=== PATIENT | female | born 1940 | race Caucasian/White ===

== ENCOUNTER 2019-03-17 20:38 | Inpatient (IN) | payer OTHER ==
[2019-03-17] MEDS ORDERED: ASPIRIN 81 MG CHEWABLE TAB PO ONE (20:47)
--- NOTE | 2019-03-17 20:48 | EDPHY ---
H & P Time Seen by Provider: 03/17/19 20:45 HPI/ROS: CHIEF COMPLAINT: Chest pain HISTORY OF PRESENT ILLNESS: Patient is a 78-year-old female presents to the emergency department with acute onset of chest pain. Her symptoms started at around 7:00 p.m.. The patient states that her chest pain is similar to when she had the heart attack 2 weeks ago. The patient was seen at [facility] 2 weeks ago for a heart attack per the patient's daughter. Per EMS the patient was given Zofran 4 mg IV and nitroglycerin 0.4. Patient refused aspirin because "her mouth was to drive." EMS states the patient has a significant history of dementia. The patient's daughters is was present on scene. Few minutes after the patient's arrival the patient's daughter arrived. She gave further history. She did confirm that the patient was seen at [facility] and diagnosed with a heart attack. At that time the patient was initially DNR. They did not want to take the patient to the cathode maker in place stents because the patient may go into cardiac arrest. A conservative approach was taken. The patient had bedside echo and medical intervention but no cardiac catheterization. REVIEW OF SYSTEMS: 10 systems were reveiwed and are negative with the exception of the elements mentioned in the history of present illness. Past Medical/Surgical History: Includes coronary artery disease Physical Exam: Vitals noted GENERAL: Moderate acute distress, alert. HEENT: Patient is holding a vomit bag. She has significant saliva at her mouth spitting into the bag. No airway occlusion. Eyes normal to inspection. NECK: Normal, supple. RESPIRATORY: Clear to auscultation bilaterally, no rales, rhonchi or wheezing. CVS: Regular rate and rhythm, no rubs, murmurs, or gallops. ABDOMEN: Soft, nontender, nondistended, no organomegaly. BACK: Normal to inspection, no CVA tenderness. SKIN: Pale, cool, no rash, dry. EXTREMITIES: No pedal edema, no calf tenderness, no Homans sign or cords, no joint swelling. NEURO/PSYCH: Alert and oriented, normal mood and affect, normal motor sensory exam. No obvious cranial nerve deficit. Constitutional: Initial Vital Signs Heart Rate 98 03/17/19 20:41 Respiratory Rate 21 H 03/17/19 20:41 Blood Pressure 108/74 03/17/19 20:41 O2 Sat (%) 96 03/17/19 20:41 O2 Delivery Mode Nasal Cannula O2 (L/minute) 4 Allergies/Adverse Reactions: bee pollen Allergy (Intermediate, Verified 03/17/19 21:11) Other-Enter Comments streptomycin Allergy (Verified 03/17/19 21:10) Home Medications: Medication Instructions Recorded Acetaminophen [Tylenol ES 500 mg 1,000 mg PO TID 03/17/19 (*)] Aspirin [Aspirin 325 mg (*)] 325 mg PO DAILY 03/17/19 Atorvastatin Calcium [Lipitor 20 20 mg PO HS 03/17/19 mg (*)] Cholecalciferol Vit D3 [Vitamin D3 2,000 units PO DAILY 03/17/19 (*)] FLUoxetine [Prozac 20 MG (*)] 40 mg PO HS 03/17/19 Furosemide [Lasix 40 MG (*)] 40 mg PO DAILY 03/17/19 Ipratropium/Albuterol [Duoneb (*)] 3 ml IH Q6-8PRN PRN 03/17/19 Metoprolol Succinate Xr [Toprol Xl 50 mg PO DAILY 03/17/19 50 mg (*)] Multivitamins [Multivitamin (*)] 1 each PO DAILY 03/17/19 Potassium Cl [Klor-Con 20 meq (*)] 20 meq PO DAILY 03/17/19 guaiFENesin [Mucinex 600 MG (*)] 600 mg PO BID 03/17/19 Medical Decision Making - Diagnostics Imaging Results: Imaging Impressions Chest X-Ray 03/17/19 20:54 Impression: 1. Mild cardiomegaly with atherosclerosis. 2. The presence of bilateral peripherally-calcified augmentation mammoplasties limits assessment of the lower lung zones. There is no focal alveolar consolidation in the upper lung zones. ED Course/Re-evaluation: In the emergency department I met EMS and took report from the weed inspector. Patient's daughter arrived shortly after the patient. I took further history from the patient's daughter. Had discussion regarding DNR status. At this time patient is DNR. The daughter is deciding if she thinks the patient would want to go to the cardiac catheterization lab. She initially informed that she would like conservative treatment at the bedside. Patient was given aspirin orally. I discussed this with Dr. Sung. A copy of the EKG was sent to Dr. Sung. Dr. Sung come to the emergency department to evaluate the patient and discussed the plan with the family 2102: Dr. uSng is in the emergency department to evaluate the patient. After multiple discussions with Cardiology in the patient's family, the patient' s wishes are to be placed in comfort care. She does not want to go to cardiac catheterization. Dr. Sung feels the patient is to be admitted to [facility] rather than [facility] your ICU. I discussed the case with Dr. Moeller from the hospitalist service. He will admit. Differential Diagnosis: My differential includes but is not limited to ACS, acute MS, dissection, aneurysm, pulmonary embolus Critical Care Time: The patient required 35 min of critical care time. This was exclusive of any unbundled procedure. This was due the patient's presentation. The patient appeared quite ill and required my presence at the bedside. I had a long discussion with the patient's daughter regarding her DNR status. Consultation was had with Cardiology regarding the patient's acute MS findings on EKG. - Data Points Laboratory Results: Laboratory Results 03/17/19 20:47 03/17/19 20:47 03/17/19 03/17/19 03/17/19 20:47 20:47 20:47 WBC 14.32 10^3/uL H 10^3/uL (3.80-9.50) RBC 5.20 10^6/uL 10^6/uL (4.18-5.33) Hgb 15.6 g/dL g/dL (12.6-16.3) Hct 49.0 % H % (38.0-47.0) MCV 94.2 fL fL (81.5-99.8) MCH 30.0 pg pg (27.9-34.1) MCHC 31.8 g/dL L g/dL (32.4-36.7) RDW 16.4 % H % (11.5-15.2) Plt Count 372 10^3/uL 10^3/uL (150-400) MPV 10.4 fL fL (8.7-11.7) Neut % (Auto) 71.4 % % (39.3-74.2) Lymph % (Auto) 19.2 % % (15.0-45.0) [place] % (Auto) 5.8 % % (4.5-13.0) Eos % (Auto) 2.2 % % (0.6-7.6) Baso % (Auto) 0.4 % % (0.3-1.7) Nucleat RBC Rel Count 0.0 % % (0.0-0.2) Absolute Neuts (auto) 10.21 10^3/uL H 10^3/uL (1.70-6.50) Absolute Lymphs (auto) 2.75 10^3/uL 10^3/uL (1.00-3.00) Absolute Monos (auto) 0.83 10^3/uL H 10^3/uL (0.30-0.80) Absolute Eos (auto) 0.32 10^3/uL 10^3/uL (0.03-0.40) Absolute Basos (auto) 0.06 10^3/uL 10^3/uL (0.02-0.10) Absolute Nucleated RBC 0.00 10^3/uL 10^3/uL (0-0.01) Immature Gran % 1.0 % % (0.0-1.1) Immature Gran # 0.15 10^3/uL H 10^3/uL (0.00-0.10) PT 12.1 SEC SEC (12.0-15.0) INR 0.93 (0.83-1.16) APTT 31.9 SEC SEC (23.0-38.0) Sodium 137 mEq/L mEq/L (135-145) Potassium 5.1 mEq/L mEq/L (3.5-5.2) Chloride 99 mEq/L mEq/L (97-110) Carbon Dioxide 20 mEq/l L mEq/l (22-31) Anion Gap 18 mEq/L H mEq/L (6-14) BUN 19 mg/dL mg/dL (7-23) Creatinine 0.8 mg/dL mg/dL (0.6-1.0) Estimated GFR > 60 Glucose 208 mg/dL H mg/dL (70-100) Calcium 10.2 mg/dL mg/dL (8.5-10.4) POC Troponin I 03/17/19 20:44 WBC RBC Hgb Hct MCV MCH MCHC RDW Plt Count MPV Neut % (Auto) Lymph % (Auto) [place] % (Auto) Eos % (Auto) Baso % (Auto) Nucleat RBC Rel Count Absolute Neuts (auto) Absolute Lymphs (auto) Absolute Monos (auto) Absolute Eos (auto) Absolute Basos (auto) Absolute Nucleated RBC Immature Gran % Immature Gran # PT INR APTT Sodium Potassium Chloride Carbon Dioxide Anion Gap BUN Creatinine Estimated GFR Glucose Calcium POC Troponin I 0.07 ng/mL ng/mL (0.00-0.08) Medications Given: Discontinued Medications Aspirin (Aspirin) 324 mg PO EDNOW ONE Stop: 03/17/19 20:48 Last Admin: 03/17/19 20:48 Dose: 324 mg Fentanyl (Sublimaze) 25 mcg IVP EDNOW ONE Stop: 03/17/19 20:59 Last Admin: 03/17/19 21:02 Dose: 25 mcg Fentanyl (Sublimaze) 25 mcg IVP EDNOW ONE Stop: 03/17/19 21:16 Last Admin: 03/17/19 21:18 Dose: 25 mcg Sodium Chloride (Ns) 500 mls @ 1,000 mls/hr IV EDNOW ONE PRN Reason: Protocol Stop: 03/17/19 21:23 Last Admin: 03/17/19 21:02 Dose: 500 mls Point of Care Test Results: Chemistry 03/17/19 20:44 POC Troponin I 0.07 ng/mL ng/mL (0.00-0.08) Departure - Departure Disposition: [facility] Inpatient Acute Clinical Impression: Chest pain Qualifiers: Chest pain type: unspecified Qualified Code(s): R07.9 - Chest pain, unspecified Acute MS Qualifiers: Myocardial infarction type: unspecified Involved coronary artery: unspecified coronary artery Qualified Code(s): I21.9 - Acute myocardial infarction, unspecified Condition: Critical
[2019-03-17] MEDS ORDERED: NS 500 ML IV ONE (20:54)
[2019-03-17] MEDS ORDERED: fentaNYL 100 MCG/2 ML INJ ONE ×2 (20:56→21:04)
[2019-03-17] MEDS ORDERED: fentaNYL 100 MCG/2 ML INJ IVP ONE ×2 (20:58→21:15)
[2019-03-17] MEDS ORDERED: MIDAZOLAM 2 MG/2 ML VIAL ONE (21:04)
[2019-03-17] MEDS ORDERED: IOPAMIDOL (ISOVUE 370) 100 ML BTL IV ONE (21:05)
[2019-03-17] MEDS ORDERED: LIDOCAINE 1% 5 ML SDV ONE (21:05)
[2019-03-17 21:07] LABS: PLATELET COUNT 372 10^3/uL (150-400)
[2019-03-17 21:33] LABS: INR 0.93 (0.83-1.16); PROTIME(PATIENT) 12.1 SEC (12.0-15.0)
[2019-03-17] MEDS ORDERED: ONDANSETRON DISINTEGRATING 4 MG TAB PO PRN (22:06)
[2019-03-17] MEDS ORDERED: ACETAMINOPHEN 325 MG TAB PO PRN (22:06)
--- NOTE | 2019-03-17 22:11 | CPEKG ---
Test Reason : OPEN Blood Pressure : / mmHG Vent. Rate : 098 BPM Atrial Rate : 112 BPM P-R Int : 043 ms QRS Dur : 112 ms QT Int : 395 ms P-R-T Axes : 000 -46 144 degrees QTc Int : 505 ms Atrial fibrillation Ventricular premature complex Incomplete right bundle branch block Probable inferior infarct, recent Minimal ST elevation, anterior leads Lateral leads are also involved Prolonged QT interval Confirmed by Anjana Correa ([id number]) on 03/17/2019 10:10:38 PM Referred By: ANJANA CORREA Confirmed By:Anjana Correa
[2019-03-17] MEDS ORDERED: NITROGLYCERIN 0.4 MG BTL SL PRN (22:42)
[2019-03-17] MEDS ORDERED: NS 1,000 ML IV SCH (23:45)
[2019-03-17] MEDS: fentaNYL 100 MCG/2 ML INJ IVP PRN (23:54)
--- NOTE | 2019-03-18 00:24 | PDGENHP ---
History and Physical - Chief Complaint Chest pain - History of Present Illness Source-patient with history of advanced dementia. Her daughter and son-in-law are at bedside and provide history. EMR was reviewed and case discussed with ED provider. HPI-this is a pleasant 78-year-old female with past medical history significant for dementia CAD with recent NH 2 weeks ago where she was admitted at [facility]. At that time patient and family had elected not to pursue any cardiac intervention. Patient remained in the hospital for 4-5 days and was discharged back home where she has caregivers for most of the week. This evening patient began to complain of significant chest pain that started before 7:00 p.m. Patient arrived via EMS. She was noted to have ST elevations. She declined aspirin but was given nitroglycerin and fentanyl EN route to the ED. She arrived to the emergency department and was noted to be having an ST- elevation NH. Dr. Sung with Cardiology discussed plan with patient and her family. Comfort care is elected as patient and her family did not want for any aggressive measures or interventions. Patient is DNR DNI. Evaluated the patient on PCU where she is complaining of significant left-sided chest pain and shortness of breath. History Information - Allergies/Home Medication List Allergies/Adverse Reactions: bee pollen Allergy (Intermediate, Verified 03/17/19 21:11) Other-Enter Comments streptomycin Allergy (Verified 03/17/19 21:10) Home Medications: Acetaminophen [Tylenol ES 500 mg (*)] 1,000 mg PO TID 03/17/19 [Last Taken 03/17] Aspirin [Aspirin 325 mg (*)] 325 mg PO DAILY 03/17/19 [Last Taken 03/17/19] Atorvastatin Calcium [Lipitor 20 mg (*)] 20 mg PO HS 03/17/19 [Last Taken ] Cholecalciferol Vit D3 [Vitamin D3 (*)] 2,000 units PO DAILY 03/17/19 [Last Taken 03/17/19] FLUoxetine [Prozac 20 MG (*)] 40 mg PO HS 03/17/19 [Last Taken 03/16/19] Furosemide [Lasix 40 MG (*)] 40 mg PO DAILY 03/17/19 [Last Taken 03/17/19] Ipratropium/Albuterol [Duoneb (*)] 3 ml IH Q6-8PRN PRN 03/17/19 [Last Taken Unknown] Metoprolol Succinate Xr [Toprol Xl 50 mg (*)] 50 mg PO DAILY 03/17/19 [Last Taken 03/17/19] Multivitamins [Multivitamin (*)] 1 each PO DAILY 03/17/19 [Last Taken 03/17/19] Potassium Cl [Klor-Con 20 meq (*)] 20 meq PO DAILY 03/17/19 [Last Taken 03/17/19 ] guaiFENesin [Mucinex 600 MG (*)] 600 mg PO BID 03/17/19 [Last Taken 03/17/19] I have personally reviewed and updated: medical history, social history, surgical history - Past Medical History Additional medical history: Dementia. CAD. COPD. 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 Patient without any prison care at home. Her daughter lives in town and provides support. Cor status-DNR DNI. Review of Systems Review of Systems: ROS: 10pt was reviewed & negative except for what was stated in HPI & below Cardiac: Reports: chest pain Physical Exam Physical Exam: Temp Pulse Resp BP Pulse Ox 36.8 C 101 H 16 109/89 H 94 03/17/19 20:52 03/17/19 21:49 03/17/19 21:49 03/17/19 23:20 03/17/19 21:49 Selected Entries 03/17/19 03/17/19 03/17/19 20:41 23:10 23:20 Blood Pressure Automatic Method Heart Rate 98 104 H Respiratory 21 H 17 Rate O2 Sat (%) 96 90 L Blood Pressure 108/74 107/64 109/89 H Mean Arterial 85 78 95 Pressure (MAP) O2 (L/minute) 4 2 Activity During At Rest Vital Signs O2 Delivery Nasal Cannula Nasal Cannula Mode Blood Pressure Left Left Source Upper Upper Arm Arm Constitutional: uncomfortable, other (Patient on moderate distress. She is complaining of left chest pain. She appears acutely ill and pale. ) Eyes: PERRL, anicteric sclera, No scleral injection Ears, Nose, Mouth, Throat: moist mucous membranes (Lips slightly cracked dry) Cardiovascular: regular rate and rhythym, no murmur, rub, or gallop (Slightly distant heart sounds.), pulses symmetric bilaterally, edema (Trace lower extremity) Lab Data & Imaging Review 03/17/19 20:47 03/17/19 20:47 WBC 14.32 10^3/uL (3.80-9.50) H 03/17/19 20:47 RBC 5.20 10^6/uL (4.18-5.33) 03/17/19 20:47 Hgb 15.6 g/dL (12.6-16.3) 03/17/19 20:47 Hct 49.0 % (38.0-47.0) H 03/17/19 20:47 MCV 94.2 fL (81.5-99.8) 03/17/19 20:47 MCH 30.0 pg (27.9-34.1) 03/17/19 20:47 MCHC 31.8 g/dL (32.4-36.7) L 03/17/19 20:47 RDW 16.4 % (11.5-15.2) H 03/17/19 20:47 Plt Count 372 10^3/uL (150-400) 03/17/19 20:47 MPV 10.4 fL (8.7-11.7) 03/17/19 20:47 Neut % (Auto) 71.4 % (39.3-74.2) 03/17/19 20:47 Lymph % (Auto) 19.2 % (15.0-45.0) 03/17/19 20:47 [place] % (Auto) 5.8 % (4.5-13.0) 03/17/19 20:47 Eos % (Auto) 2.2 % (0.6-7.6) 03/17/19 20:47 Baso % (Auto) 0.4 % (0.3-1.7) 03/17/19 20:47 Nucleat RBC Rel Count 0.0 % (0.0-0.2) 03/17/19 20:47 Absolute Neuts (auto) 10.21 10^3/uL (1.70-6.50) H 03/17/19 20:47 Absolute Lymphs (auto) 2.75 10^3/uL (1.00-3.00) 03/17/19 20:47 Absolute Monos (auto) 0.83 10^3/uL (0.30-0.80) H 03/17/19 20:47 Absolute Eos (auto) 0.32 10^3/uL (0.03-0.40) 03/17/19 20:47 Absolute Basos (auto) 0.06 10^3/uL (0.02-0.10) 03/17/19 20:47 Absolute Nucleated RBC 0.00 10^3/uL (0-0.01) 03/17/19 20:47 Immature Gran % 1.0 % (0.0-1.1) 03/17/19 20:47 Immature Gran # 0.15 10^3/uL (0.00-0.10) H 03/17/19 20:47 PT 12.1 SEC (12.0-15.0) 03/17/19 20:47 INR 0.93 (0.83-1.16) 03/17/19 20:47 APTT 31.9 SEC (23.0-38.0) 03/17/19 20:47 Sodium 137 mEq/L (135-145) 03/17/19 20:47 Potassium 5.1 mEq/L (3.5-5.2) 03/17/19 20:47 Chloride 99 mEq/L (97-110) 03/17/19 20:47 Carbon Dioxide 20 mEq/l (22-31) L 03/17/19 20:47 Anion Gap 18 mEq/L (6-14) H 03/17/19 20:47 BUN 19 mg/dL (7-23) 03/17/19 20:47 Creatinine 0.8 mg/dL (0.6-1.0) 03/17/19 20:47 Estimated GFR > 60 03/17/19 20:47 Glucose 208 mg/dL (70-100) H 03/17/19 20:47 Calcium 10.2 mg/dL (8.5-10.4) 03/17/19 20:47 POC Troponin I 0.07 ng/mL (0.00-0.08) 03/17/19 20:44 Imaging Review: Portable AP Upright Chest, at 8:59 PM Clinical History: 78-year-old female in the ED with chest pain. Comparison Study: None available. Findings: Telemetry monitoring lead lines and oxygen tubing are present. Bilateral augmentation mammoplasties are seen with fibrous capsular calcification, partially obscuring the lower lung zones. There is a rotatory thoracic scoliosis. The cardiac silhouette is mildly enlarged. There is dense atherosclerotic calcification of the aortic knob. There is no infiltrate identified in the mid -to-upper lung zones. The pulmonary vasculature is upper-normal; there is no peripheral interstitial edema. There is no pneumothorax. There is no convincing evidence of a pleural effusion. Impression: 1. Mild cardiomegaly with atherosclerosis. 2. The presence of bilateral peripherally-calcified augmentation mammoplasties limits assessment of the lower lung zones. There is no focal alveolar consolidation in the upper lung zones. Dictated By: Italo Cheng MD Visualized and Interpreted EKG results: Yes EKG additional interpertation: afib, v rate 90s. PVC. ST elevation inferior anterior leads. QTc 505. Assessment & Plan Assessment: this is a pleasant 78-year-old female with past medical history significant for dementia CAD with recent NH 2 weeks ago where she was admitted at [facility]. #Acute NH (Acute) - patient on comfort care measures. patient continues to have increased chest pain. Clarified with the patient's daughter that she is likely to continue to have chest pain until infarct is completed. Nitroglycerin , morphine which was transitioned back to fentanyl for improved affect numbness and Ativan will be available p.r.n. For comfort measures. Patient did have a slight drop in her blood pressure following a nitroglycerin to the SBP in the 70s. This improved rapidly. Daughter notes that 1st priority is to ensure the patient is comfortable however she is hopeful that her siblings will be able to arrive approximately noon tomorrow from out of town. #Chest pain (Acute) - p.r.n. Medications as noted above. #Comfort measures - supportive care. No interventions. Chronic medical issues - holding home medication #COPD - oxygen and nebulizer p.r.n. For comfort #Dementia - patient's daughter reports she will stay at bedside this evening. #CAD - holding patient's patient's including statin, beta-alicia, Lasix FEN - patient did receive a single bolus of IV fluids was not discontinued following dosing of morphine and nitroglycerin following which patient's blood pressure did drop down into the 70s. Daughter was amenable to this. Diet as tolerated. Patient is orally hydrating well. PPX-no SCDs or anticoagulation for comfort measures. Cor-DNR DNI. Disposition patient admitted observation status on the [facility] floor in PCU overflow for continued pain control.
[2019-03-18] MEDS: fentaNYL 100 MCG/2 ML INJ IVP PRN (01:20)
[2019-03-18] MEDS: LORazepam 2 MG/ML INJ IVP PRN ×5 (03:03→23:58)
[2019-03-18] MEDS: ONDANSETRON 4 MG/2 ML VIAL IVP PRN ×3 (05:14→23:07)
--- NOTE | 2019-03-18 12:17 | HOSPPROG ---
Hospitalist Progress Note Assessment/Plan: Pleasant 78-year-old female with past medical history significant for dementia CAD with recent MS 2 weeks ago where she was admitted at [facility]. At that time a decision for no medical or surgical interventions was made. The pt had chest pain recurrence on 03/17 and the pt was admitted via the ER for symptom mgmt. In the ER, Dr. Sung with Cardiology evaluated the patient and the family once again decided upon no interventions. Overnight she has been on comfort care orders. Pain and anxiety is well managed at this time The pt's daughter confirms comfort care again today. Additional family members are on their way. #Acute MS (Acute) - patient on comfort care measures. -no cp this morning -pain is well controlled #Chest pain (Acute) - p.r.n. Medications as noted above. #Comfort measures - supportive care. No interventions. Chronic medical issues - holding home medication #COPD - oxygen and nebulizer p.r.n. For comfort #Dementia #CAD - holding patient's patient's meds including statin, beta-alicia, Lasix FEN - Diet as tolerated. PPX-no SCDs or anticoagulation for comfort measures. Cor-DNR DNI. Plan: -Comfort Care -Symptom Mgmt -Palliative Care -Hospice consult -Dispo: pending hospice arrangement and symptom mgmt Subjective: no cp or sob. no n/v Objective: Vital Signs Temp Pulse Resp BP Pulse Ox 36.4 C 119 H 16 105/81 H 97 03/18/19 09:25 03/18/19 09:25 03/18/19 09:25 03/18/19 09:25 03/18/19 09:25 03/17/19 03/18/19 03/19/19 05:59 05:59 05:59 Intake Total 500 Balance 500 PT 12.1 SEC (12.0-15.0) 03/17/19 20:47 INR 0.93 (0.83-1.16) 03/17/19 20:47 - Physical Exam Constitutional: no apparent distress Eyes: PERRL, EOMI Ears, Nose, Mouth, Throat: moist mucous membranes Cardiovascular: regular rate and rhythym Respiratory: no respiratory distress, no rales or rhonchi Gastrointestinal: normoactive bowel sounds Skin: warm Neurologic: No AAOx3 Psychiatric: interacting appropriately, not anxious ICD10 Worksheet Patient Problems: Problems Problem Status Onset Acute MS Acute Chest pain Acute
--- NOTE | 2019-03-18 16:13 | ASMTCASEMG ---
Living Arrangements What is your living Answers: With Child(chuckie) arrangement? Who do you live with? Type Of Residence What kind of residence do Answers: House you live in? Case Management Evaluation Functional: ADL / IADL Answers: Cognitive Deficiency Performance Deficits Due to: Education Needs Answers: Hospice Notes: family will have consul t Discharge Plan Comments Coordination Status Comments Notes: Pt was admitted through ED yesterday with chest pain. She had an AK two weeks ago and was seen at [facility]. She has signifiant dementia. CM discussed pt in interdisciplinary rounds. Daughter Lavern's wish is to have her mother go on hospice, as she says this is what her mother wants and that she has expressed that she is "ready to go". Because of this, she did not have cardiac cath following AK. Our Palliative Care team met with Lavern this morning and will meet with extended family this afternoon. CM put in a referral to [facility] per Palliative Care's request. Pt lives at home with Lavern. CM will continue to follow. JEMAL DC plan: Home with hospice Date Signed: 03/18/2019 04:12 PM Electronically Signed By:Melani Champion
[2019-03-19] MEDS: LORazepam 2 MG/ML INJ IVP PRN ×2 (09:56→19:19)
[2019-03-19] MEDS: ONDANSETRON 4 MG/2 ML VIAL IVP PRN ×2 (09:56→18:09)
--- NOTE | 2019-03-19 13:21 | HOSPPROG ---
Hospitalist Progress Note Assessment/Plan: Pleasant 78-year-old female with past medical history significant for dementia CAD with recent CO 2 weeks ago where she was admitted at [facility]. At that time a decision for no medical or surgical interventions was made. The pt had chest pain recurrence on 03/17 and the pt was admitted via the ER for symptom mgmt. In the ER, Dr. Sung with Cardiology evaluated the patient and the family once again decided upon no interventions. She is on comfort care orders. Pain and anxiety is well managed at this time #Acute CO (Acute) - patient on comfort care measures. #Chest pain (Acute) - p.r.n. Medications as noted above. #Comfort measures - supportive care. No interventions. #COPD - oxygen and nebulizer p.r.n. For comfort #Dementia #CAD - holding patient's patient's meds including statin, beta-alicia, Lasix #Urinary retention FEN - Diet as tolerated. PPX-no SCDs or anticoagulation for comfort measures. Cor-DNR DNI. Plan: -Comfort Care -Symptom Mgmt -Palliative Care -Hospice consult -[facility] -Dispo: pending hospice arrangement and symptom mgmt. Possible d/c today. Subjective: comfortable. Had chest pain earlier, better with Morphine. Objective: Vital Signs Temp Pulse Resp BP Pulse Ox 36.4 C 145 H 16 101/83 H 95 03/19/19 10:08 03/19/19 10:08 03/19/19 10:08 03/19/19 10:08 03/19/19 10:08 03/18/19 03/19/19 03/20/19 05:59 05:59 05:59 Intake Total 500 100 Output Total 0 Balance 500 100 PT 12.1 SEC (12.0-15.0) 03/17/19 20:47 INR 0.93 (0.83-1.16) 03/17/19 20:47 - Physical Exam Constitutional: no apparent distress Eyes: PERRL, EOMI Ears, Nose, Mouth, Throat: moist mucous membranes, hearing normal Cardiovascular: regular rate and rhythym, No edema Respiratory: no respiratory distress, no rales or rhonchi, clear to auscultation Gastrointestinal: normoactive bowel sounds Skin: warm Neurologic: No AAOx3 Psychiatric: interacting appropriately, not anxious Lymph, Heme, Immunologic: No petechiae ICD10 Worksheet Patient Problems: Problems Problem Status Onset Acute CO Acute Chest pain Acute
--- NOTE | 2019-03-19 17:09 | ASMTCMCOM ---
CM Note CM Note Notes: Plan is for discharge tomorrow morning to [facility] on [facility] hospice level care. Guerda has been coordinating this discharge and will have an RN come and hook pt up to [employer] pump and coordinate dc tomorrow morning. [employer] pump is being delivered tonight and CM notified Charge Nurse that pump will be delivered and will need to be locked up until Guerda can hook it up tomorrow am. CM was back and forth with [facility] and [facility] all day trying to get pt admitted to [facility] as pt's family feel her needs exceed what they can care for at home. CM contacted pt's ACPR worker Ashley [phone] who said she was not able to come out and complete ULTC 100 until Friday despite CM explaining the circumstances. JEMAL started ppwk to fax over but since pt qualified on [facility] and is discharging tomorrow CM did not complete. Date Signed: 03/19/2019 05:09 PM Electronically Signed By:MARGOT Hawkins
--- NOTE | 2019-03-19 17:15 | PDMN ---
Medical Necessity Medical necessity: Change to inpt as of 03/19/19, meets inpt criteria per MD order and MCG M-230, Myocardial Infarction, 2 days, inpt adm indicated for acute STEMI, symptomatic w/increased chest pain and ST elevations noted on EKG. PMHx includes recent KS 2 weeks ago, COPD, CAD, and dementia. Pt on comfort care measures per family, pain/symptom management: IV morphine, IV Ativan for anxiety, IV antiemetics, [place], 3 L O2, Hospice arrangements being made, est LOS >2MN.
[2019-03-20] MEDS: LORazepam 2 MG/ML INJ IVP PRN ×3 (02:01→14:30)
[2019-03-20] MEDS: fentaNYL 100 MCG/2 ML INJ IVP PRN ×4 (07:53→13:26)
[2019-03-20 11:00] VITALS: BP 91/67
--- NOTE | 2019-03-20 12:02 | PDIAF ---
- Diagnosis Diagnosis: Hospice with [facility]ft Code Status: Do Not Resuscitate - Medication Management Discharge Medications: electronically signed and located in the Home Medication List. - Orders Diet Recommendation: no restrictions on diet Diet Texture: Regular Texture Diet Additional Instructions: Activity: as tolerated Meds: -Per your Hospice team. Morphine HYDRODYNAMICIST is being set up - Follow Up Care Current Providers and Referrals: Patient,NotPresent [Unknown] - As per Instructions
--- NOTE | 2019-03-20 12:22 | PDDCSUM ---
Discharge Summary Discharge Summary: Pleasant 78-year-old female with past medical history significant for dementia CAD with recent OR 2 weeks ago where she was admitted at [facility]. At that time a decision for no medical or surgical interventions was made. The pt had chest pain recurrence on 03/17 and the pt was admitted via the ER for symptom mgmt. In the ER, Dr. Sung with Cardiology evaluated the patient and the family once again decided upon no interventions. She was admitted and comfort care orders were placed. Family met with our Palliative care team and hospice was chosen. Symptom control was optimized. She is ready for d/c to [facility] Pain mgmt will be set up by hospice via a Morphine LEAD IOS DEVELOPER which they will manage. DDX: #Acute OR (Acute) - patient on comfort care measures. #Chest pain (Acute) - #COPD #Dementia #CAD - holding patient's patient's meds including statin, beta-alicia, Lasix #Urinary retention: tong placed Exam: NAD RRR CTA B S/NT/ND TONG IN MEDS: SEE MED REC TOTAL TIME SPENT ON D/C IS 35 MINS. D/W FAMILY, NURSING, AND CM
--- NOTE | 2019-03-20 12:23 | ASMTDCNOTE ---
Case Management Discharge Discharge Order Complete? Answers: Yes Patient to Obtain Answers: Other Notes: [facility] Medications Transportation Arranged Answers: Other Notes: [facility] Discharge Comments Notes: [facility] is transporting pt at 1245 today to [facility]. The [facility] nurse will be present to manage the pump during discharge. RN received report number. Date Signed: 03/20/2019 12:22 PM Electronically Signed By:Kayley Doll
--- NOTE | 2019-03-20 12:39 | ASMTLACE ---
SHABNAM Length of stay for Answers: 1 day current admission Comorbidities - select Answers: Chronic pulmonary disease all that apply Coronary Artery Disease Dementia Opioid dependence / Chronic pain Previous myocardial infarction # of Emergency department Answers: 1-2 visits in the last 6 months Score: 14 Date Signed: 03/20/2019 12:38 PM Electronically Signed By:Kayley Doll
--- NOTE | 2019-03-20 12:44 | ASDISCHSUM ---
Discharge Information Plan Status:Hospice-SNF Medically Cleared to Leave: Discharge Date: D/C Disposition:[facility] Facility [facility] D/C Disposition:Prison Facility Projected Discharge Date:03/20/2019 11:00 AM Transportation at D/C: Discharge Delay Reason: Follow-Up Date:03/20/2019 11:00 AM Discharge Slot: Final Diagnosis: Placement Information Referral Type:*Hospice Referral ID:[id number] Provider Name:[facility] Address 1:[address] Phone Number: Address 2: Fax Number: [facility]:[place] Selection Factors: State:[place] Referral Type:*Fdc/SNF Referral ID:[id number] Provider Name:[facility] Address 1[address] Address 2: [facility]:[place] Selection Factors: State:[place] Patient Contact Information Contact Name:VEL Relationship:Daughter Address:[address] Work Phone: City:[place] Alternate Phone: State/Zip Code:[place] [address] Email: Financial Information Financial Class:Medicare Advantage Plans Primary Plan Desc:[employer] MEDICARE ADVANTAGE OUTPAT Primary Plan Number:[id number] Secondary Plan Desc: Secondary Plan Number: Assessment Information LACE LACE Length of stay for Answers: 1 day current admission Comorbidities - select Answers: Chronic pulmonary disease all that apply Coronary Artery Disease Dementia Opioid dependence / Chronic pain Previous myocardial infarction # of Emergency department Answers: 1-2 visits in the last 6 months Score: 14 Date Signed: 03/20/2019 12:38 PM Electronically Signed By:Kayley Doll [facility] Initial CM Assessment Living Arrangements What is your living Answers: With Child(chuckie) arrangement? Who do you live with? Type Of Residence What kind of residence do Answers: House you live in? Case Management Evaluation Functional: ADL / IADL Answers: Cognitive Deficiency Performance Deficits Due to: Education Needs Answers: Hospice Notes: family will have consul t Discharge Plan Comments Coordination Status Comments Notes: Pt was admitted through ED yesterday with chest pain. She had an AK two weeks ago and was seen at [facility]. She has signifiant dementia. CM discussed pt in interdisciplinary rounds. Daughter Lavern's wish is to have her mother go on hospice, as she says this is what her mother wants and that she has expressed that she is "ready to go". Because of this, she did not have cardiac cath following AK. Our Palliative Care team met with Lavern this morning and will meet with extended family this afternoon. CM put in a referral to [facility] per Palliative Care's request. Pt lives at home with Lavern. CM will continue to follow. JEMAL DC plan: Home with hospice Date Signed: 03/18/2019 04:12 PM Electronically Signed By:Melani [email or web address].RN [facility] Progress Note CM Note CM Note Notes: Plan is for discharge tomorrow morning to [facility] on [facility] hospice level care. Chaka has been coordinating this discharge and will have an RN come and hook pt up to [employer] pump and coordinate dc tomorrow morning. [employer] W[employer] pump is being delivered jessica and JEMAL notified Charge Nurse that pump will be delivered and will need to be locked up until Guerda can hook it up tomorrow am. JEMAL was back and forth with [facility] and [facility] all day trying to get pt admitted to [facility] as pt's family feel her needs exceed what they can care for at home. CM contacted pt's [facility] worker Ashley [phone] who said she was not able to come out and complete ULTC 100 until Friday despite CM explaining the circumstances. CM started ppwk to fax over but since pt qualified on [facility] and is discharging tomorrow CM did not complete. Date Signed: 03/19/2019 05:09 PM Electronically Signed By:MARGOT Hawkins Case Management Discharge Plan Note Case Management Discharge Discharge Order Complete? Answers: Yes Patient to Obtain Answers: Other Notes: [facility] Medications Transportation Arranged Answers: Other Notes: [facility] Discharge Comments Notes: [facility] is transporting pt at 1245 today to [facility]. The [facility] nurse will be present to manage the pump during discharge. RN received report number. Date Signed: 03/20/2019 12:22 PM Electronically Signed By:Kayley Doll Intervention Information
== END 2019-03-20 14:44 | DRG 282 ==
LOC: F2W 22:12 → OBSVTOIN 03-19 16:17
PROVIDERS: ADMIT Internal Medicine; ATTEND Internal Medicine
DX: I21.9 Acute myocardial infarction, unspecified (principal); I25.10 Atherosclerotic heart disease of native coronary artery without angina pectoris; R33.9 Retention of urine, unspecified; F03.90 Unspecified dementia, unspecified severity, without behavioral disturbance, psychotic disturbance, mood disturbance, and anxiety; J44.9 Chronic obstructive pulmonary disease, unspecified; Z66 Do not resuscitate; Z51.5 Encounter for palliative care; Z87.01 Personal history of pneumonia (recurrent)
CPT/HCPCS: 84484-ER; 96374; G0378; J1644; J2060; J2250; J2270; J2405; J3010; Q9967